=== PATIENT | male | born 1995 | race African-American/Black ===

== ENCOUNTER 2016-08-22 14:01 | Emergency (ER) | payer BC, OTHER ==
[~2016-08-22] VITALS: Ht 185.4 cm; Wt 79.4 kg
--- OUTSIDE RECORDS SUMMARY | 2016-08-22 14:09 | XMS REPORT | Continuity of Care Document ---
Author Author [facility] Address Unknown Phone Unavailable Allergies Medications Problems Procedures Results Encounters ACCT No. Visit Date/Time Discharge Status Pt. Type Provider Facility Loc./Unit Complaint [id number] 12/28/2013 16:41:58 12/28/2013 23: 59:59 CLS Outpatient Nissa Tanner
--- NOTE | 2016-08-22 14:13 | ED Upper Extremity ---
General Stated Complaint: RIGHT HAND INJURY Source: patient Exam Limitations: no limitations History of Present Illness Time seen by provider: 14:12 Initial Comments To ER with reports of a right hand injury after punching a wall. This occurred earlier today. He has broken his hand before but states "last time it was just a fracture, today I think it's broken". No pain in the forearm Onset: just prior to arrival Severity: moderate Pain/Injury Location: right hand Method of Injury: fell Modifying Factors: Improves With Movement Allergies and Home Medications Allergies Coded Allergies: No Known Drug Allergies (Unverified , 01/15/16) Home Medications Hydrocodone/Acetaminophen 1 Each Tablet #14 1 EACH PO Q4H PRN PRN PAIN Prescribed by: AVA MEJIA on 08/22/16 1419 Constitutional: see HPI EENTM: see HPI Respiratory: no symptoms reported Cardiovascular: no symptoms reported Genitourinary: no symptoms reported Musculoskeletal: see HPI Skin: no symptoms reported Psychiatric/Neurological: No Symptoms Reported Past [id number]-Amhimp Hx Patient Social History Recent Foreign Travel: No Contact w/Someone Who Travel: No Surgeries HX Surgeries: Yes Surgeries: Orthopedic Respiratory Hx Respiratory Disorders: No Cardiovascular Hx Cardiac Disorders: No Neurological Hx Neurological Disorders: No Genitourinary Hx Genitourinary Disorders: No Gastrointestinal Hx Gastrointestinal Disorders: No Musculoskeletal Hx Musculoskeletal Disorders: No Endocrine Hx Endocrine Disorders: No HEENT HX ENT Disorders: No Cancer Hx Cancer: No Psychosocial Hx Psychiatric Problems: Yes (alcohol abuse) Family Medical History Significant Family History: No Pertinent Family Hx Physical Exam Vital Signs Vital Sign - Last 12Hours 08/22/16 14:15 Temp 98.0 Pulse 77 Resp 16 B/P 141/78 Pulse Ox 98 Capillary Refill : General Appearance: WD/WN no apparent distress HEENT: PERRL/EOMI normal ENT inspection Neck: non-tender full range of motion Respiratory: no respiratory distress no accessory muscle use Gastrointestinal: normal bowel sounds non tender soft Shoulder: normal inspection non-tender Elbow/Forearm: normal inspection, non-tender Wrist: Yes normal inspection, Yes non-tender Hand: Right, deformity, limited ROM, soft tissue tenderness, swelling Neurologic/Tendon: normal sensation normal motor functions normal tendon functions Neurologic/Psychiatric: alert normal mood/affect oriented x 3 Skin: normal color warm/dry Progress/Results/Core Measures Results/Orders My Orders Orders-AVA MEJIA APRN Hand, Right, 3 Views (08/22/16 14:11) Vital Signs/I&O Vital Sign - Last 12Hours 08/22/16 14:15 Temp 98.0 Pulse 77 Resp 16 B/P 141/78 Pulse Ox 98 Departure Communication Progress Notes Patient requests STD testing as well but is without symptoms. Patient placed in an ulnar gutter style splint using 4 inch Ortho-Glass Impression Impression: Primary Impression: Fracture of hand Qualified Code: S62.91XA - Unspecified fracture of right wrist and hand, initial encounter for closed fracture Disposition: HOME, SELF-CARE Condition: Stable Departure-Patient Inst. Decision time for Depature: 14:18 Referrals: TEQUILA BADILLO MD,EDGAR RÍOS,KERRY BARAJAS,LOCAL PHYSICIAN (PCP) Primary Care Physician HUMBERTO ALFORD MD,SARA PALMER,KYLEIGH Ortega MD Patient Instructions: Hand Fracture Add. Discharge Instructions: 1. Wear the splint at all times until you follow-up with orthopedics 2. Call [facility] here in [place] to schedule an appointment for routine STD testing 3. Pain medication as directed 4. Call one of the orthopedic surgeons of your choosing to schedule an appointment for follow-up within the next 2 weeks Scripts Hydrocodone/Acetaminophen ([place] 5-325 Tablet)1 Each Tablet1 Each PO Q4H PRN PAIN #14 TAB Prov:AVA MEJIA APRN 08/22/16 AVA MEJIA APRN Aug 22, 2016 14:13
[2016-08-22] MEDS ORDERED: HYDR-757 PO (14:19)
--- NOTE | 2016-08-22 14:45 | Diagnostic Imaging Report ---
INDICATION: Punched wall. FINDINGS: There is a fracture along the base of the fifth metacarpal which does extend along the articulating surface with the carpal bones. There is approximately 4 mm of diastases. There is offset of the articulating surface. IMPRESSION: Intra-articular fracture with mild displacement involving the proximal fifth metacarpal, as described. Dictated by: Dictated on workstation # [id number]
[2016-08-22 14:59] VITALS: BP 141/78
== END 2016-08-22 14:59 | disposition home or self-care (01) ==
LOC: EDUNIT# 14:01 → ER 14:05
DX: S62.316A Displaced fracture of base of fifth metacarpal bone, right hand, initial encounter for closed fracture (principal); W22.01XA Walked into wall, initial encounter; Y99.8 Other external cause status
CPT/HCPCS: 29125; 73130